=== PATIENT | male | born 1955 | race Caucasian/White ===

== ENCOUNTER → 2023-09-16 06:59 | Outpatient (REF) | payer MEDICARE, BC, SELFPAY | LOC: MRI 3T 06:59 | PROVIDERS: ATTENDING PHYSICIAN Podiatrist Foot & Ankle Surgery; FAMILY PHYSICIAN Internal Medicine; REFERRING PHYSICIAN Chiropractor | DX: M67.88 Other specified disorders of synovium and tendon, other site (principal) | CPT/HCPCS: 73718; 73721 ==

== ENCOUNTER 2024-09-28 15:41 | Emergency (ER) | payer MEDICARE, BC, SELFPAY ==
[2024-09-28 16:18] VITALS: BP 170/100
[2024-09-28 16:43] LABS: % Basophils 0.5 % (0-2); % Eosinophils 1.7 % (0-6); % Immature Granulocytes 0.2 % (0-0.5); % Lymphocytes 24.6 % (20.5-51.1); % Monocytes 11.7 % (1.7-9.3); % Neutrophils 61.3 % (42.2-75.2); Absolute Eosinophils 0.1 10^3/uL (0-0.7); Absolute Monocytes 0.5 10^3/uL (0.1-0.6); Absolute Neutrophils 2.5 10^3/uL (1.4-6.5); Hematocrit 45.5 % (39.0-52.0); Hemoglobin 16.2 g/dL (13.0-18.0); Mean Corp Hgb Conc. 35.6 g/dL (33.0-37.0); Mean Corpuscular Volume 89.7 fL (80.0-94.0); Mean Platelet Volume 9.5 fL (7.4-10.4); Nucleated Red Blood Cells % 0 % (-); Platelet Count 245 10^3/uL (130-400); Red Blood Cell Count 5.07 10^6/uL (4.70-6.10); Red Cell Dist. Width 11.9 % (11.5-14.5)
[2024-09-28 16:58] LABS: ALT (SGPT) 55 U/L (0-50); AST (SGOT) 40 U/L (17-59); Albumin 4.8 g/dl (3.5-5.0); Alkaline Phosphatase 70 U/L (38-126); Blood Urea Nitrogen 17 mg/dl (9-20); Calcium 9.6 mg/dl (8.4-10.2); Carbon Dioxide 29 mmol/L (22-30); Chloride 100 mmol/L (98-107); Glucose 100 mg/dl (70-99); Potassium 4.6 mmol/L (3.5-5.1); Sodium 138 mmol/L (135-145); Total Bilirubin 1.2 mg/dl (0.2-1.3); Total Protein 7.2 g/dl (6.3-8.2); eGFR > 60.00
[2024-09-28 17:07] LABS: COVID-19 Antigen Negative (Negative)
[2024-09-28 17:32] VITALS: BMI 31.7
--- NOTE | 2024-09-28 17:32 | EDRN ---
Pt states he arrives for aching, fever (subsided on Wednesday but came back), sneezing, congestion, past 2 days head pressure, dizziness, nausea, DIXON as SOB going up stairs, ear congestion.
--- NOTE | 2024-09-28 17:37 | EDRN ---
Pt admits to decreased appetite and not eating much.
[2024-09-28 17:39] VITALS: BP 150/86
--- NOTE | 2024-09-28 18:12 | EDRN ---
William ORTIZ in room w/ pt.
--- NOTE | 2024-09-28 18:28 | ED.GENMED ---
History of Present Illness
<Alice Joy PA-C - Last Filed: 09/28/24 18:33>
General
Chief Complaint: Cold/Flu/URI Symptoms
Source: patient
Exam Limitations: none
Time Seen by Provider: 09/28/24 17:40
Nursing documentation reviewed up to this point in time: agreed with
History of Present Illness
History of Present Illness:
69 y/o M with h/o hld
8 days URi sxs, fever, congestion, cough, headache
the sypmtoms got better but then the past 2 days he has been in bed, fatigue, mild constnt headache and positional vertigo where he feels dizziness when he turns his head
he has had vertigo before which didn't respond to eply maneuver/PT but did respond well to chrioppractor adjustment
last adjustment was 3 mo ago
pt says he is going to go next week
but in the meantime, the headache is dull and mild to moderate; thinks it is more painful than he is caring to admit
he has not had any neck stiffness, vomiting, new fever, numbess/tingling/weakness
but he has had nausea
last took tylenol earlier today
Past History
<Alice Joy PA-C - Last Filed: 09/28/24 18:33>
Past History
ED Past Medical History: Hypercholesterolemia
Social History
Tobacco: Non-smoker
Alcohol: None
Personal:
Review of Systems
<Alice Joy PA-C - Last Filed: 09/28/24 18:33>
Review of Systems
Allergies reviewed?: Yes
All Other Systems: Not applicable
Phy Exam
<Alice Joy PA-C - Last Filed: 09/28/24 18:33>
Physical Exam
Physical Exam:
GENERAL: Alert , in no apparent distress
HEAD: NCAT
EYE: pupils equal and reactive, no nystagmus, no photophobia
NECK: Supple,full rom, nontender
ENT: o/p clr, mmm. no significant nasal congestion/ears normal
CARDIAC: Regular rate and rhythm . no edema
LUNGS: Clear breath sounds bilaterally, no acute respiratory distress, no wheezes/rales/rhonchi
ABDOMEN: Soft, without focal tenderness, no r/g, no cvat
NEUROLOGICAL: Alert and orientedx 4, cn intact, no facial asymmetry, 5/5 strength in UE/LE, sensation intact, romberg neg, ambulates without assistance, neg pronator drift
SKIN: Warm and dry, skin intact.
MUSCULOSKELETAL: No edema, well perfused.
PSYCH: Normal and appropriate interaction.
Course
<Alice Joy PA-C - Last Filed: 09/28/24 18:33>
Orders/Labs/Results
Orders:
Orders
09/28/24 16:22
CXR2 [CR Chest - 2 Views ] Urgent
Comment:
Reason For Exam: uri for one wk with dizziness
09/28/24 16:33
COVID-19 Antigen Urgent
Source: Nasal Swab
Complete Blood Count/With Diff Urgent
Comprehensive Metabolic Panel Urgent
Influenza A+B Rapid Molecular Urgent
MONIQUE Source: Nasal Swab
Specimen Description:
09/28/24 18:13
CT Head & Neck Angio W/wo IV Urgent
Comment:
Reason For Exam: dizziness, headache x 2 days
09/28/24 18:14
0.9% Sodium Chloride 1000 ml [Nss] 1,000 ml IV BOLUS
Diphenhydramine [Benadryl] 25 mg IV NOW STA
Metoclopramide [Reglan] 10 mg IV NOW STA
Abnormal Lab Results
09/28/24
16:33
WBC 4.0 L 10^3/uL
(4.8-10.8)
MCH 32.0 H pg
(27.0-31.0)
Absolute Lymphs (auto) 1.0 L 10^3/uL
(1.2-3.4)
Monocytes % 11.7 H %
(1.7-9.3)
Glucose 100 H mg/dl
(70-99)
ALT 55 H U/L
(0-50)
09/28/24 16:33
09/28/24 16:33
Vital Signs
Initial and Last Documented VS:
Initial Vital Signs
Temp Pulse Resp BP Pulse Ox
98.6 F 60 16 170/100 98
09/28/24 16:18 09/28/24 16:18 09/28/24 16:18 09/28/24 16:18 09/28/24 16:18
Last Documented Vital Signs
Temp Pulse Resp BP Pulse Ox
98.3 F 103 18 150/86 99
09/28/24 17:39 09/28/24 17:39 09/28/24 17:39 09/28/24 17:39 09/28/24 17:39
<Maritza Fontenot, DO - Last Filed: 09/28/24 20:25>
Orders/Labs/Results
Orders:
Orders
09/28/24 16:22
CXR2 [CR Chest - 2 Views ] Urgent
Comment:
Reason For Exam: uri for one wk with dizziness
09/28/24 16:33
COVID-19 Antigen Urgent
Source: Nasal Swab
Complete Blood Count/With Diff Urgent
Comprehensive Metabolic Panel Urgent
Influenza A+B Rapid Molecular Urgent
MONIQUE Source: Nasal Swab
Specimen Description:
09/28/24 18:13
CT Head & Neck Angio W/wo IV Urgent
Comment:
Reason For Exam: dizziness, headache x 2 days
09/28/24 18:14
0.9% Sodium Chloride 1000 ml [Nss] 1,000 ml IV BOLUS
Diphenhydramine [Benadryl] 25 mg IV NOW STA
Metoclopramide [Reglan] 10 mg IV NOW STA
Abnormal Lab Results
09/28/24
16:33
WBC 4.0 L 10^3/uL
(4.8-10.8)
MCH 32.0 H pg
(27.0-31.0)
Absolute Lymphs (auto) 1.0 L 10^3/uL
(1.2-3.4)
Monocytes % 11.7 H %
(1.7-9.3)
Glucose 100 H mg/dl
(70-99)
ALT 55 H U/L
(0-50)
09/28/24 16:33
09/28/24 16:33
Vital Signs
Initial and Last Documented VS:
Initial Vital Signs
Temp Pulse Resp BP Pulse Ox
98.6 F 60 16 170/100 98
09/28/24 16:18 09/28/24 16:18 09/28/24 16:18 09/28/24 16:18 09/28/24 16:18
Last Documented Vital Signs
Temp Pulse Resp BP Pulse Ox
98.3 F 103 18 150/86 99
09/28/24 17:39 09/28/24 17:39 09/28/24 17:39 09/28/24 17:39 09/28/24 17:39
<Alice Joy PA-C - Last Filed: 09/28/24 18:33>
MDM/Problems Addressed
Differential Diagnosis Includes:
flu, migraine, vertigo
ED Attending Note
<Alice Joy PA-C - Last Filed: 09/28/24 18:33>
-
Portions of this chart may have been created with voice recognition software.� Occasional wrong word or��sound alike� substitutions may have occurred due to the inherent limitations of voice recognition software.
<Maritza Fontenot DO - Last Filed: 09/28/24 20:25>
ED Attending Note
Patient seen and examined by attending physician: Yes
I performed the substantive portion of visit, reviewed & personally made and approve the management plan that is documented in note by myself or ELVIE.: Yes
I performed a history and physical exam of patient and discussed management with resident, I reviewed resident's note and agree with documented findings and plan of care.: Yes
ED Attending Note:
69-year-old male with history of hyperlipidemia presenting for headache and dizziness for the past 2 days. Patient reports that he has had flulike symptoms for the past week, however in the past 2 days has had some room spinning dizziness, felt off
balance, positional with standing. Denies focal weakness or numbness to extremities. Visual changes. Does report history of vertigo in the past. Does also note that 3 months ago he had his neck adjusted by chiropractor, however no issues after
the fact. Vital signs significant for high blood pressure, however improved without intervention.
On exam patient resting comfortably, no acute distress or discomfort. Benign cardiac and pulmonary exam. No increased work of breathing, lungs clear to auscultation. On neurologic exam, pupils equal and reactive, extraocular movements intact. No
focal neurologic deficits with intact strength and sensation. Overall low suspicion for acute intracranial abnormality. Do suspect vertiginous versus volume depletion. Patient had laboratory analysis and viral swabs completed prior to my
assessment. Patient is positive for the flu which can explain headache and dizziness. Patient also notes that he has been eating as much given his symptoms. Do suspect component of mild dehydration. Patient received IV fluids and Reglan prior to
my assessment, reports improvement of his headache. Pending CT angiography of the head and neck with ultimate plan for discharge home for supportive therapy if within normal limits
Discharge Plan
Departure
Discharge Problem:
Influenza A, Headache
Instructions: Flu in adults - Discharge instructions
Prescriptions:
New
meclizine 25 mg tablet
25 mg PO BID PRN (Reason: dizziness) Qty: 10 0RF
No Action
hydrocodone-acetaminophen 1 TABLET tablet
1 - 2 tab PO Q4HPRN PRN (Reason: moderate to severe pain) Qty: 10 0RF
Referrals:
Otoniel Grajeda MD [Family Provider] -
Activity Restrictions/Additional Instructions:
YOU HAVE INFLUENZA
IT CAN TAKE TIME TO RESOLVE
TYLENOL FOR HEADACHES
DRINK FLUIDS
TRY TO AVOID SUDDEN MOEVEMENTS OF YOUR HEAD BECAUSE OF THE DIZZINESS
TAKE MECLIZINE 25 MG NEEDED 2 TIMES A DAY FOR THE VERTIGO
RETURN FOR: SEVERE SUDDEN WORST HEADACHE, PASSING OUT, SEVERE DIZZINESS, NECK PAIN OR ANY CONCERN.
Interventions
Interventions:
*Risk Screen - Suicide Last Done: 09/28/24 16:18
*General Assessment Last Done: 09/28/24 17:31
*Neglect/Abuse Screening Last Done: 09/28/24 16:18
*ED- Fall Risk Assessment Last Done: 09/28/24 17:31
*ED COVID-19 Vaccine History Last Done: 09/28/24 17:31
ED- Pulmonary Assessment Last Done: 09/28/24 17:35
Discharge Date and Time
Print Language: LAO
[2024-09-28] MEDS: NSS 1000 IV (18:53)
[2024-09-28] MEDS: REGLAN 10 MG IV (18:54)
[2024-09-28] MEDS: BENADRYL 25 MG IV (18:54)
== END 2024-09-28 21:27 | disposition home or self-care (01) ==
LOC: EMR 15:41
PROVIDERS: EMERGENCY PHYSICIAN Student in an Organized Health Care Education/Training Program; FAMILY PHYSICIAN Internal Medicine
DX: J10.1 Influenza due to other identified influenza virus with other respiratory manifestations (principal); R51.9 Headache, unspecified; E78.00 Pure hypercholesterolemia, unspecified
CPT/HCPCS: 99284; 96374; 96375; 96361; 70496; 70498; 71046; 80053; 85025; 87502; 87811; Q9967

== ENCOUNTER → 2024-10-05 09:33 | Outpatient (REF) | payer MEDICARE, BC, SELFPAY | LOC: HWRAD 09:33 | PROVIDERS: ATTENDING PHYSICIAN Internal Medicine | DX: E78.5 Hyperlipidemia, unspecified (principal) | CPT/HCPCS: 75571 ==

== ENCOUNTER → 2024-12-12 15:46 | Outpatient (REF) | payer MEDICARE, BC, SELFPAY | LOC: HWRCS 15:46 | PROVIDERS: ATTENDING PHYSICIAN Nuclear Medicine Nuclear Cardiology; FAMILY PHYSICIAN Internal Medicine | DX: R93.1 Abnormal findings on diagnostic imaging of heart and coronary circulation (principal); I25.10 Atherosclerotic heart disease of native coronary artery without angina pectoris; E78.2 Mixed hyperlipidemia; I77.9 Disorder of arteries and arterioles, unspecified; Z82.49 Family history of ischemic heart disease and other diseases of the circulatory system | CPT/HCPCS: 93306 ==

== ENCOUNTER → 2024-12-13 08:26 | Outpatient (REF) | payer MEDICARE, BC, SELFPAY | LOC: HWRCS 08:26 | PROVIDERS: ATTENDING PHYSICIAN Nuclear Medicine Nuclear Cardiology; FAMILY PHYSICIAN Internal Medicine | DX: R93.1 Abnormal findings on diagnostic imaging of heart and coronary circulation (principal); I25.10 Atherosclerotic heart disease of native coronary artery without angina pectoris; E78.2 Mixed hyperlipidemia | CPT/HCPCS: 78452; 93017; A9500 ==

== ENCOUNTER → 2025-05-07 17:54 | Outpatient (REF) | payer MEDICARE, BC, SELFPAY | LOC: PAVMRI 17:54 | PROVIDERS: ATTENDING PHYSICIAN Physician Assistant Surgical; FAMILY PHYSICIAN Internal Medicine | DX: M54.50 Low back pain, unspecified (principal); M54.16 Radiculopathy, lumbar region | CPT/HCPCS: 72148 ==

== ENCOUNTER → 2025-07-20 09:28 | Outpatient (REF) | payer MEDICARE, BC, SELFPAY | LOC: HWRAD 09:28 | PROVIDERS: ATTENDING PHYSICIAN Psychiatry & Neurology Neurology; FAMILY PHYSICIAN Internal Medicine | DX: K68.3 Retroperitoneal hematoma (principal) | CPT/HCPCS: 74176 ==